=== PATIENT | female | born 1935 | race Caucasian/White ===

== ENCOUNTER 2016-09-08 11:13 | Observation (INO) | payer OTHER ==
[2016-09-08] MEDS ORDERED: ASPIRIN PO ONE (11:41)
--- NOTE | 2016-09-08 11:55 | PROVIDER DOCUMENTATION ---
HPI-Chest Pain - General Chief Complaint: Chest Pain Stated Complaint: CP Time Seen by Provider: 09/08/16 11:45 Source: patient, family Allergies/Adverse Reactions: Patient Allergies Allergy/AdvReac Type Severity Reaction Status Date / Time No Known Allergies Allergy Verified 09/08/16 12:34 Home Medications: Home Medication List Medication Instructions Recorded Confirmed Last Taken Type Amlodipine Besylate [Norvasc] 5 mg PO HS 09/08/16 09/08/16 09/07/16 20:00 History 5 MG Furosemide [Lasix] 20 mg PO DAILY 09/08/16 09/08/16 09/08/16 07:00 History 20 MG Levothyroxine [Synthroid] 50 mcg PO DAILY 09/08/16 09/08/16 09/07/16 07:00 History 50 MCG Lisinopril [Zestril] 40 mg PO DAILY 09/08/16 09/08/16 09/07/16 07:00 History 40 MG Metoprolol Succinate E.r. [Toprol 25 mg PO HS 09/08/16 09/08/16 09/07/16 20:00 History Xl] 25 MG PRAVAstatin [Pravachol] 40 mg PO DAILY 09/08/16 09/08/16 09/07/16 07:00 History 40 MG Warfarin [Coumadin] 4 mg PO QHS 09/08/16 09/08/16 09/07/16 20:00 History 4 MG - History of Present Illness-CP Nature of Presenting Problem: patient is a 80 yo F that presents to the ER with chest pain x 2 weeks that got worse last pm. She has radiation to left arm and back. family found out about the pain last pm, but reports patient has been taking Rolaids over the past 2 weeks. She has history of A-fib, cva, and pacemaker implanted. Location: reports: substernal Chest Pain Radiation: reports: arms (left), shoulders (left) Quality of Pain: reports: tightness Severity in ED: moderate Onset/Duration: gradual, other (2 weeks) Timing: still present, getting worse Context/Activities at Onset: reports: none Modifying Factors: improves with: nothing Associated Symptoms: denies: back pain, diaphoresis, dizziness, fatigue, fever/ chills, nausea, shortness of breath, vomiting Nitro Today/Relief: no nitro taken today Aspirin Treatment Today: 325 mg x 1, provided by ED Prior Chest Pain/Cardiac Workup: reports: other (a-fib) Similar Symptoms Previously?: Yes Recently Seen Here or By Another Healthcare Provider: No Review of Systems - Adult - REVIEW OF SYSTEMS - ADULT Constitutional: denies: chills, fever Eyes: reports: no symptoms reported Ears, Nose, Mouth & Throat: reports: no symptoms reported Cardiovascular: reports: chest pain. denies: palpitations, syncope Respiratory: denies: cough, shortness of breath, wheezing Gastrointestinal: reports: no symptoms reported Genitourinary: reports: no symptoms reported Musculoskeletal: reports: bone pain, joint pain. denies: back pain, neck pain Integumentary: reports: no symptoms reported Neurological: denies: dizziness/vertigo, seizure, syncope Psychiatric: reports: no symptoms reported Endocrine: reports: no symptoms reported Hematologic/Lymphatic: reports: no symptoms reported Allergic/Immunologic: reports: no symptoms reported All Other Systems: Reviewed and Negative Past History - Adult - PAST MEDICAL HISTORY-ADULT Review of Records: reports: Old Records Reviewed, Nursing Assessment Review, Medications Reviewed Cardiovascular: reports: A-Fib, HTN Physical Exam-General - PHYSICAL EXAM-ADULT Initial Vital Signs Reviewed: Yes - CONSTITUTIONAL General Appearance: alert, no apparent distress - EYES Eyes: PERRL/EOMI, pink conjunctivae - HEAD, EARS, NOSE, MOUTH & THROAT HENMT: normocephalic/atraumatic, moist mucous membranes, normal ENT inspection - NECK Neck: non-tender, full range of motion, normal inspection - RESPIRATORY Respiratory: lungs clear, normal breath sounds, no respiratory distress, no accessory muscle use, other (left sided anterior tender with palpitation) - CARDIOVASCULAR Cardiovascular: no murmur, irregularly irregular - GASTROINTESTINAL (ABDOMEN) Abdominal Exam: normal bowel sounds, non tender, soft, no organomegaly, no pulsatile mass - MUSCULOSKELETAL Extremity: normal range of motion, normal inspection, no pedal edema - SKIN Integumentary: normal color, warm/dry - NEUROLOGIC Neurologic: grossly normal, no motor/sensory deficits - PSYCHIATRIC Psych/Mental Status: normal mood/affect, normal thought content, normal thought process, oriented x 3 Progress - PLAN OF CARE/RESULTS Progress/Plan/Lab Results: plan of care-cardiac work up Vital Signs Temp Pulse Resp BP Pulse Ox 09/08/16 11:22 97.3 F L 86 18 148/66 98 No Known Allergies Allergy (Verified 09/08/16 12:34) Amlodipine Besylate [Norvasc] 5 mg PO HS 09/08/16 Furosemide [Lasix] 20 mg PO DAILY 09/08/16 Levothyroxine [Synthroid] 50 mcg PO DAILY 09/08/16 Lisinopril [Zestril] 40 mg PO DAILY 09/08/16 Metoprolol Succinate E.r. [Toprol Xl] 25 mg PO HS 09/08/16 PRAVAstatin [Pravachol] 40 mg PO DAILY 09/08/16 Warfarin [Coumadin] 4 mg PO QHS 09/08/16 Laboratory 09/08/16 09/08/16 09/08/16 11:44 11:44 11:44 WBC RBC Hgb Hct MCV MCH MCHC RDW Std Deviation Plt Count MPV Immature Gran % (Auto) Neut % (Auto) Lymph % (Auto) [place] % (Auto) Eos % (Auto) Baso % (Auto) Immature Gran # (Auto) Neut # (Auto) Lymph # (Auto) [place] # (Auto) Eos # (Auto) Baso # (Auto) PT 18.8 H INR 1.76 PTT (Actin FS) 29.6 D-Dimer Sodium Potassium Chloride Carbon Dioxide Anion Gap BUN Creatinine Estimated GFR/1.73 m2 BUN/Creatinine Ratio Glucose Calculated Osmolality Calcium Magnesium Total Bilirubin AST ALT Alkaline Phosphatase Creatine Kinase Troponin T < 0.010 [id number]-Ccommwbqcnq Pept 1406 H Total Protein Albumin Globulin Albumin/Globulin Ratio 09/08/16 09/08/16 09/08/16 11:44 11:44 11:44 WBC 6.30 RBC 4.30 Hgb 13.1 Hct 38.8 MCV 90.2 MCH 30.5 MCHC 33.8 RDW Std Deviation 13.9 Plt Count 176 MPV 13.1 H Immature Gran % (Auto) 0.0 Neut % (Auto) 67.7 Lymph % (Auto) 17.3 L [place] % (Auto) 11.3 H Eos % (Auto) 2.9 Baso % (Auto) 0.8 Immature Gran # (Auto) 0.00 Neut # (Auto) 4.27 Lymph # (Auto) 1.09 L [place] # (Auto) 0.71 H Eos # (Auto) 0.18 Baso # (Auto) 0.05 PT INR PTT (Actin FS) D-Dimer 0.12 Sodium 139 Potassium 3.9 Chloride 98 Carbon Dioxide 28 Anion Gap 13 BUN 21 Creatinine 1.4 H Estimated GFR/1.73 m2 36 BUN/Creatinine Ratio 15 Glucose 97 Calculated Osmolality 280 Calcium 9.4 Magnesium 1.9 Total Bilirubin 0.39 AST 13 ALT 11 Alkaline Phosphatase 76 Creatine Kinase 62 Troponin T [id number]-Xgddgipvgzo Pept Total Protein 6.8 Albumin 3.7 Globulin 3.1 Albumin/Globulin Ratio 1.2 Orders Category Date Time Status Cardiac Monitoring DIRECTED Care 09/08/16 11:39 Active Oxygen Therapy- ED Nursing DIRECTED Care 09/08/16 11:40 Active Saline Loc NOW Care 09/08/16 11:39 Active CHEST-2 VIEWS [RAD] Stat Exams 09/08/16 11:39 Draft CBC WITH ELECTRONIC DIFF [HEME] Stat Lab 09/08/16 11:44 Completed CK PROFILE [SP CHEM] Stat Lab 09/08/16 11:44 Completed COMPREHENSIVE METABOLIC PANEL [CHEM] Stat Lab 09/08/16 11:44 Completed D-DIMER [CHEM] Stat Lab 09/08/16 11:44 Completed MAGNESIUM [CHEM] Stat Lab 09/08/16 11:44 Completed PRO B-NATRIURETIC PEPTIDE Stat Lab 09/08/16 11:44 Completed PROTIME WITH INR [COAG] Stat Lab 09/08/16 11:44 Completed PTT [COAG] Stat Lab 09/08/16 11:44 Completed TROPONIN T Stat Lab 09/08/16 11:44 Completed Aspirin Med 09/08/16 11:41 Discontinued 325 mg PO NOW ONE EKG [EKG] Stat Ther 09/08/16 11:21 Draft - EKG 1 Time of EKG reading by physician:: 11:21 EKG Read and Signed by:: Ninfa Sampson EKG Interpretation (*Must complete 3 of following elements*): Abnormal Rate: 90 Rhythm: a-fib [place]: left QRS: LBB (incomplete), LVH ST Wave: non-specific ST changes - XRAY 1 XRAY Study: Chest Impression: Abnormal XRAY Interpretation: CMG - CONSULTS/PCP/HOSPITALIST Notification #1 *Consult/PCP/Hospitalist*: Time Discussed: 14:27 Consult Disposition: Will see in ED, Admit Departure - Departure Time of Disposition Order: 14:28 DIAGNOSIS: Chest pain in adult A-fib Qualifiers: Atrial fibrillation type: persistent Qualified Code(s): I48.1 - Persistent atrial fibrillation Disposition: ADMITTED INPATIENT 09 Certified Medical Emergency: Emergent Condition: Stable Referrals: Adarsh Caldera MD [Primary Care Provider] - Attestation - Scribe Verification/Attestation Scribe:: Luis Belcher Acting as Scribe for:: Sammy Ramos Scribe documention review:: This chart was documented by a scribe and accurately reflects the service the provider performed and the decisions made by the provider. - Physician/ LUIS Attestation Patient care was provided by Advanced Practice Provider:: Yes Advanced Practice Provider:: Sammy Ramos Advanced Practice Provider documentation review:: The Mid-level provider documentation, treatment plan and medical decision making was reviewed by the physician who agrees with all treatment and medical decision making by the MLP. Physician Attestation - Physician Attestation I, the provider, attest to the following statement:: Sammy Ramos Physician documentation Attestation:: This documentation recorded by the scribe accurately reflects the service I personally performed and the decisions made by me.
[2016-09-08 11:59] LABS: MANUAL DIFF NEEDED? NO
[2016-09-08 12:07] LABS: BASO% 0.8 % (0.0-0.8); EOS# 0.18 X1000 (0.0-0.7); EOS% 2.9 % (0.0-10.0); HEMATOCRIT 38.8 % (37.0-47.0); HEMOGLOBIN 13.1 g/dL (12.0-16.0); LYMPH# 1.09 X1000 (1.2-3.4); LYMPH% 17.3 % (20.5-51.1); MCH 30.5 PG (27-31); MCHC 33.8 g/dL (33-37); MCV 90.2 FL (81-99); MONO# 0.71 X1000 (0.11-0.59); MONO% 11.3 % (1.7-9.3); MPV 13.1 FL (7.4-10.4); NEUT% 67.7 % (42.2-75.2); PLT 176 X1000 (130-400)
[2016-09-08 12:13] LABS: INR 1.76; PROTIME 18.8 Seconds (9.2-11.7); PTT 29.6 Seconds (22.0-36.0)
--- NOTE | 2016-09-08 12:31 | EKG Report ---
Test Performed on : 09/08/2016 11:21:21 AM Test Reason : cp Blood Pressure : / mmHG Vent. Rate : 090 BPM Atrial Rate : 094 BPM P-R Int : 000 ms QRS Dur : 110 ms QT Int : 366 ms P-R-T Axes : 000 -43 101 degrees QTc Int : 447 ms Atrial fibrillation. with occasional ventricular-paced complexes Left axis deviation Incomplete left bundle branch block Moderate voltage criteria for LVH, may be normal variant ST & T wave abnormality, consider lateral ischemia Abnormal ECG When compared with ECG of 05-MAY-2007 01:45, Electronic ventricular pacemaker has replaced Atrial fibrillation. Unconfirmed Result
[2016-09-08 12:32] LABS: ALBUMIN 3.7 g/dL (3.5-5.0); CALCIUM 9.4 mg/dL (8.8-10.2); MAGNESIUM 1.9 mg/dL (1.5-2.7); POTASSIUM 3.9 mmol/L (3.5-5.1); TOTAL BILIRUBIN 0.39 mg/dL (0.20-1.00); TOTAL PROTEIN 6.8 g/dL (6.3-8.3)
--- NOTE | 2016-09-08 13:42 | Diag Imaging Result Document ---
PROCEDURE NAME: CHEST-2 VIEWS - 09/08/2016 TWO VIEWS THE CHEST: FINDINGS: There is cardiomegaly. There is no evidence of acute pulmonary disease. There are no previous studies. IMPRESSION: Cardiomegaly.
[2016-09-08] MEDS ORDERED: ZOFRAN IV PRN (15:30)
[2016-09-08] MEDS ORDERED: TYLENOL PO PRN (15:30)
--- NOTE | 2016-09-08 18:05 | ECHO REPORT ---
ORDER DATE: 09/08/2016 INTERPRETING PHYSICIAN: Dr. Potts REQUESTING PHYSICIAN: CLINICAL INDICATIONS: An 80-year-old female with atrial fibrillation, pacemaker, chest pain. M-MODE MEASUREMENTS: Right ventricle: cm. Left ventricle end diastole: cm. Left ventricle end systole: cm. Posterior wall: cm. Interventricular septum: cm. Left atrium: cm. Aortic root: cm. SUMMARY OF 2-DIMENSIONAL IMAGING: The right ventricle appears to be basically normal. The tricuspid valve shows a mild degree of regurgitation. The inferior vena cava was not visualized. Pacemaker lead is noted within the right-sided chambers. Pulmonary pressure estimated at 41 mmHg. The pulmonic valve looks normal. Color flow mapping unremarkable. The left ventricle shows normal contractility. Ejection fraction estimated at 55%. No wall motion abnormality is noted. The aortic valve has 3 cusps. They open normally. Color flow mapping unremarkable. The mitral valve shows a nllh-eb-emqerigd degree of regurgitation. The left atrium is moderately dilated. The right atrium is also mild to moderately dilated. There is no pericardial effusion, masses or thrombus. IMPRESSION: In summary, this study shows: 1. Normal left ventricular systolic function. 2. Lutb-hx-oxorzrwe degree of mitral regurgitation. 3. Mild degree of tricuspid regurgitation with pulmonary pressure of 41 mmHg. 4. Sclerosis of the aortic valve without stenosis. Clinical correlation recommended.
--- NOTE | 2016-09-08 18:52 | HISTORY AND PHYSICAL ---
PCP: Dr. Adarsh Caldera. CHIEF COMPLAINT: Chest pain. HISTORY OF PRESENT ILLNESS: Mrs. Russ is a pleasant 80-year-old female with a history of chronic atrial fibrillation and stroke last year status post thrombectomy who presents to our ER with acute onset of chest pain that began this morning, she has actually been having similar symptoms over the past few days. She reports the chest pain is more of a pressure type sensation over the midsternum. She also has what she describes as radiating quality to her shoulder on the left side down to her left fingers. This occurs at rest and she is unsure how long the pain lasts. She does have occasional nausea but no vomiting. She reports occasional shortness of breath. She has had no recent fevers, cough, congestion or lower extremity edema. She denies any orthopnea. When she came to the ER this morning she had diagnostics and laboratory data done. Her EKG shows atrial fibrillation at a rate of 90 beats a minute with nonspecific ST and T abnormalities. Her laboratory data was largely unremarkable with the exception of mild renal insufficiency. As such we are going to admit her for observation status for chest pain. PAST MEDICAL HISTORY: 1. CVA status post thrombectomy last year affecting her speech and left side. 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 2. Chronic atrial fibrillation on anticoagulation therapy [facility] [place]. 3. Hypertension. 4. Hyperlipidemia. 5. Remote history of breast cancer. 6. Macular degeneration . PAST SURGICAL HISTORY: Pacemaker insertion, mastectomy, hysterectomy, thrombectomy. SOCIAL HISTORY: Patient denies tobacco, alcohol or drug use. She lives alone. She is . She has strong family support. FAMILY HISTORY: Mother from lupus. Father with heart disease. REVIEW OF SYSTEMS: Ten point review of systems obtained, found to be negative with the exception of the HPI. ALLERGIES: No known drug allergies. HOME MEDICATIONS: Norvasc 5 mg at bedtime, Lasix 20 mg daily, Synthroid 50 mcg daily, Zestril 40 mg daily, Toprol-XL 25 mg p.o. at bedtime, Pravachol 40 mg daily, Coumadin 4 mg at bedtime. PHYSICAL EXAMINATION: VITAL SIGNS: Blood pressure is 148/66, heart rate 86, respiratory rate 18, O2 saturation 98% on room air, temperature is 97.3 degrees. GENERAL: This is an elderly female lying in hospital bed in no acute distress. NEUROLOGIC: The patient is awake. She is alert, she follows commands and has left-sided weakness and her speech is stuttered. HEENT: Head atraumatic and normocephalic. Her pupils are equal, round, reactive to light. Oral mucosa is moist. Trachea is midline. No JVD. CHEST: Clear to auscultation bilaterally. CV: Irregular rate and rhythm. S1-S2 is noted. No murmurs, gallops, clicks or rubs. GI: Soft, nondistended, nontender. Bowel sounds are positive. EXTREMITY: Without edema, clubbing or cyanosis. Pulses are diminished but palpable bilaterally. DIAGNOSTIC DATA: Chest x-ray shows cardiomegaly. WBC 6.3, hemoglobin 13.1, hematocrit 38.8, platelet count 176,000, INR 1.76, D-dimer 0.12. Sodium 139, potassium 3.9, chloride 98, CO2 20, anion gap 13, BUN 21, creatinine 1.4, glucose 97, calcium 9.4, magnesium 1.9, bilirubin 0.39, AST 13, ALT 11, alkaline phosphatase 76, CK 62, proBNP 1406, protein 6.8. EKG atrial fibrillation, rate controlled. Nonspecific ST and T abnormalities. ASSESSMENT/PLAN: 1. Chest pain: Given her history we are going to consult cardiology, admit her for observation status, rule out DC with cardiac enzymes and monitor her on continuous telemetry. Will continue her home medications and add 81 mg of aspirin and check a lipid panel and thyroid function panel in the morning. 2. History of cerebrovascular accident: This is chronic and stable. Will continue to monitor her neuro status and continue home medications. 3. Acute kidney injury: Creatinine 1.4, unclear what her baseline is as we do not have a history but we will withhold her lisinopril and monitor. 4. Chronic atrial fibrillation: Rate controlled, continue her Coumadin, we have increased the dosage by 1 mg to a total of 5 mg at bedtime and we will monitor INRs daily. 5. Hyperlipidemia: Chronic and stable, continue her pravastatin, check a lipid panel in the morning. 6. Prophylaxis will be provided with PPI, DVT prophylaxis provided with her Coumadin. Further recommendations to follow. Dictated by MAXX Hernandez for Eliel Valera MD
[2016-09-08] MEDS ORDERED: COUMADIN PO SCH ×2 (21:00)
[2016-09-08] MEDS ORDERED: NORVASC PO SCH (21:00)
[2016-09-08] MEDS ORDERED: TOPROL XL PO SCH (21:00)
[2016-09-09] MEDS ORDERED: PRILOSEC PO SCH (07:00)
[2016-09-09 07:36] LABS: INR 1.75; PROTIME 18.7 Seconds (9.2-11.7)
[2016-09-09 07:50] LABS: CALCIUM 9.4 mg/dL (8.8-10.2); POTASSIUM 3.5 mmol/L (3.5-5.1)
--- NOTE | 2016-09-09 08:01 | EKG Report ---
Test Performed on : 09/08/2016 4:50:35 PM Test Reason : NO Order in [employer] Blood Pressure : / mmHG Vent. Rate : 081 BPM Atrial Rate : 326 BPM P-R Int : 000 ms QRS Dur : 108 ms QT Int : 384 ms P-R-T Axes : 000 -45 094 degrees QTc Int : 446 ms Atrial fibrillation. Incomplete right bundle branch block Left anterior fascicular block Voltage criteria for left ventricular hypertrophy Cannot rule out Septal infarct , age undetermined Abnormal ECG When compared with ECG of 08-SEP-2016 11:21, (Unconfirmed) Atrial fibrillation. has replaced Electronic ventricular pacemaker Unconfirmed Result
[2016-09-09 08:38] LABS: HEMOGLOBIN A1C 5.4 % (4.8-6.0)
[2016-09-09] MEDS ORDERED: LASIX PO SCH (09:00)
[2016-09-09] MEDS ORDERED: ASPIRIN EC PO SCH (09:00)
[2016-09-09] MEDS ORDERED: LISINOPRIL 40 MG PO SCH (09:00)
[2016-09-09] MEDS ORDERED: SYNTHROID PO SCH (09:00)
[2016-09-09] MEDS ORDERED: PRAVACHOL PO SCH (09:00)
[2016-09-09 14:05] VITALS: BP 118/46
--- NOTE | 2016-09-10 04:57 | DISCHARGE SUMMARY ---
ADMISSION DATE: 09/08/2016 DISCHARGE DATE: 09/09/2016 DISPOSITION: Home. FOLLOWUP: 1. Dr. Adarsh Caldera. 2. Dr. Crockett (hoop machine operator in [place]). CONSULTATION DURING THIS ADMISSION: None. INVASIVE PROCEDURES DONE: None. IMAGING STUDIES OF SIGNIFICANCE: An echocardiogram was done which showed an ejection fraction of 55% with no wall motion abnormality. ADMISSION DIAGNOSES: 1. Chest pain. 2. History of cerebrovascular accident. 3. Acute kidney disease. 4. Chronic atrial fibrillation. 5. Dyslipidemia. DISCHARGE DIAGNOSES: 1. Episode of chest tightness, unclear etiology, likely related to exertion. 2. History of cerebrovascular accident with right-sided slight hemiparesis. 3. Dehydration with acute kidney injury, improved. 4. Chronic atrial fibrillation, on Coumadin. 5. Dyslipidemia. 6. Gastroesophageal reflux disease. 7. Folic acid deficiency. DISCHARGE MEDICATIONS: 1. Coumadin 4 mg at bedtime. 2. Metoprolol succinate 25 mg at bedtime. 3. Amlodipine 5 mg p.o. at bedtime. 4. Lisinopril 40 mg daily. 5. Pravastatin 40 mg daily. 6. Levothyroxine 50 mcg daily. 7. Lasix 20 mg daily. 8. Folic acid 1 mg daily. 9. Omeprazole 20 mg daily. PRESENTING COMPLAINT: Chest discomfort. HISTORY OF PRESENTING COMPLAINT: Ms. Russ is a 50-year-old, female with a history of atrial fibrillation and a CVA last year, status post thrombectomy. The patient presented to the emergency department because of acute onset of chest tightness while she was spreading her bed. According to the daughter who was in the room, the patient was spreading her bed and has been doing a lot of activities since she was recuperating from a previous stroke and she thinks she has been overexerting herself. Upon presentation, the patient was evaluated. An EKG was done which was unremarkable for any acute coronary syndrome. The patient was therefore admitted for further evaluation. HOSPITAL COURSE: The patient did pretty well. She was monitored 24 hours. Creatinine was slightly elevated at 1.4 on presentation. She was hydrated and this came down to 1.1. The patient was also given PPI and according to her, that improved her initial chest tightness and discomfort. I think she probably has an underlying GERD. The patient was also found to have a folate level of 7.2 and was replaced. In terms of the chest pain workup, four times troponin trending was completely negative. The patient's EKGs were also not remarkable so at least acute myocardial infarction was ruled out. The patient has a very good followup with Dr. Crockett and because there is not any acute issues going on with her heart, we discharged the patient to follow up with Dr. Crockett in about a week. She is also advised to continue taking all her medications. I added omeprazole and folic acid for the new pathologies that we have encountered. The patient will be discharged today in a very stable condition. Blood pressure is 118/46, pulse of 73, respirations are 18, temperature is 98.3 degrees. Patient's physical exam is completely unremarkable. Disposition is home. ACTIVITY: As tolerated. FOLLOWUP: With the physicians mentioned above. Time spent for discharge is 36 minutes.
[2016-09-10] MEDS ORDERED: PROTONIX PO SCH (07:00)
[2016-09-10] MEDS ORDERED: FOLIC ACID PO SCH (09:00)
== END 2016-09-09 15:58 | disposition home or self-care (01) ==
LOC: ED 11:13 → UNDOADMIN 16:03 → EDIPHOLD 16:03 → INTOOBSV 18:24 → 4N 18:24
PROVIDERS: ATTEND Internal Medicine
DX: R07.89 Other chest pain (principal); N17.9 Acute kidney failure, unspecified; I48.2 Chronic atrial fibrillation; I10 Essential (primary) hypertension; E78.5 Hyperlipidemia, unspecified; Z95.0 Presence of cardiac pacemaker; I69.354 Hemiplegia and hemiparesis following cerebral infarction affecting left non-dominant side; I69.328 Other speech and language deficits following cerebral infarction; I69.398 Other sequelae of cerebral infarction; H54.42 Blindness, left eye, normal vision right eye; H35.30 Unspecified macular degeneration; M79.602 Pain in left arm; R11.0 Nausea; M79.601 Pain in right arm; M25.512 Pain in left shoulder; M25.511 Pain in right shoulder; Z85.3 Personal history of malignant neoplasm of breast; Z79.899 Other long term (current) drug therapy; Z79.01 Long term (current) use of anticoagulants; Z90.10 Acquired absence of unspecified breast and nipple; E86.0 Dehydration; K21.9 Gastro-esophageal reflux disease without esophagitis; E53.8 Deficiency of other specified B group vitamins
CPT/HCPCS: 71020; 80048; 80053; 82550; 82607; 82746; 83036; 83735; 83880; 84439; 84443; 84484; 85025; 85379; 85610; 85730; 93005; 93306; 99285